=== PATIENT | female | born 1995 | race Caucasian/White ===

== ENCOUNTER 2024-04-04 07:36 | Inpatient (IN) | payer BC ==
[2024-04-04] MEDS ORDERED: ePHEDrine Sulfate 50 MG/10 ML VIAL ONE (08:00)
[2024-04-04] MEDS ORDERED: Bupivacaine 0.25% HCL 30 ML VIAL ONE (08:00)
[2024-04-04 08:14] VITALS: BMI 29.2
[2024-04-04 08:50] LABS: Fetal Membranes Rupture No Membranes Rupture (No Rupture)
[2024-04-04] MEDS ORDERED: Misoprostol 200 MCG TAB PR PRN (09:11)
[2024-04-04] MEDS ORDERED: Tranexamic Acid 1,000 MG/10 ML VIAL IVP PRN (09:11)
[2024-04-04] MEDS ORDERED: HYDROcodone/Acetaminophen 5/325 mg Tablet PO PRN (09:11)
[2024-04-04] MEDS ORDERED: Promethazine HCl 25 MG/ML VIAL IM PRN (09:11)
[2024-04-04] MEDS ORDERED: Ondansetron PF 4 MG/2 ML Vial IVP PRN (09:11)
[2024-04-04] MEDS ORDERED: Diphenoxylate HCl/Atropine Tablet PO PRN (09:11)
[2024-04-04] MEDS ORDERED: hydrALAZINE 20 MG/ML VIAL SLOW IVP PRN ×3 (09:11→23:54)
[2024-04-04] MEDS ORDERED: Lidocaine 1% (PF) 30 ML VIAL SC PRN (09:11)
[2024-04-04] MEDS ORDERED: Methylergonovine 0.2 MG/ML VIAL IM PRN (09:11)
[2024-04-04] MEDS ORDERED: Carboprost 250 MCG/ML AMP IM PRN (09:11)
[2024-04-04] MEDS ORDERED: Oxytocin 30 units/NS 500 ML 500 ML IV SCH (09:15)
[2024-04-04] MEDS: Misoprostol 100 MCG TAB VAG SCH (10:02)
[2024-04-04] MEDS: Penicillin G Potassium 5 MILL.UNITS in Sodium Chloride 0.9% 100 ML IVPB SCH (10:02)
[2024-04-04 10:21] LABS: Hemoglobin 10.2 g/dL (12.0-15.5); Mean Corpuscular HGB CONC 31.9 g/dL (32.0-36.0); Mean Corpuscular Hemoglobin 25.3 pg (27.0-33.0); Mean Corpuscular Volume 79.4 fL (81.6-98.3); Mean Platelet Volume 9.9 fL (7.4-10.4); Platelet Count 290 10x3/uL (150-450); RBC Distribution Width 13.2 % (11.5-14.5); Red Blood Cell (RBC) Count 4.03 10x6/uL (3.90-5.03); White Blood Cell (WBC) Count 8.05 10x3/uL (3.5-10.5)
[2024-04-04 10:55] LABS: HBsAg Index 0.22 S/CO (0-0.99); Hep B Surf Ag - L&D Non-Reactive S/CO (NonReactive); Syphilis Antibody Nonreactive (Nonreactive); Syphilis Antibody Index 0.05 S/CO (<1.00 Non-Reactive)
[2024-04-04] MEDS: Penicillin G 2.5 MILL.units 2.5 MILL.UNITS in Premix 1 BAG IVPB SCH (14:57)
[2024-04-04] MEDS: fentaNYL/Ropivacaine Epidural 100 ML ONE (16:46)
[2024-04-04] MEDS: Lactated Ringer's 1,000 ML IV SCH (17:24)
[2024-04-04] MEDS: Oxytocin 30 units/NS 500 ML 500 ML IV SCH (20:55)
[2024-04-04 21:24] LABS: Analyzer IN Cardio CS NICU; Critical Notified By: clumpkins rt; Critical Notified Whom: Sharon FNP; RapidComm Collect By nur.arp
[2024-04-04 21:27] LABS: Analyzer IN Cardio CS NICU; Critical Notified By: clumpkins rt; Critical Notified Whom: Sharon FNP; RapidComm Collect By nur.arp; pH (Cord, venous) 7.316 (7.250-7.350)
[2024-04-04] MEDS: Ibuprofen 800 MG TAB PO PRN (22:51)
[2024-04-04] MEDS ORDERED: diphenhydrAMINE 25 MG CAP PO PRN (23:54)
[2024-04-04] MEDS ORDERED: Witch Hazel 100 PAD JAR TOP PRN (23:54)
[2024-04-04] MEDS ORDERED: Milk Of Magnesia 30 ML UDCUP PO PRN (23:54)
[2024-04-04] MEDS ORDERED: Bisacodyl 10 MG SUPP PR PRN (23:54)
[2024-04-04] MEDS ORDERED: Boostrix 0.5 ML (Tdap) VIAL (>/=7 yrs of age) IM ONE (23:54)
[2024-04-05] MEDS: Ibuprofen 800 MG TAB PO SCH (08:34)
[2024-04-05] MEDS: Prenatal Vitamin 1 TAB PO SCH (10:00)
[2024-04-05] MEDS: Docusate 100 MG CAP PO SCH (10:00)
[2024-04-05] MEDS: Ferrous Sulfate 325 MG TAB PO SCH (10:04)
[2024-04-05 20:33] VITALS: BP 120/79; TEMP 98.8
== END 2024-04-05 22:00 | disposition home or self-care (01) | DRG 807 ==
LOC: CSHLD/OP 07:36 → CSHLD 09:16 → CSHPP 23:12
PROVIDERS: ADMIT Obstetrics & Gynecology; ATTEND Obstetrics & Gynecology
PROC: 10E0XZZ Delivery of Products of Conception, External Approach (ICD-10-PCS; principal; 2024-04-04)
PROC: 3E0334Z Introduction of Serum, Toxoid and Vaccine into Peripheral Vein, Percutaneous Approach (ICD-10-PCS; 2024-04-05)
DX: O99.824 Streptococcus B carrier state complicating childbirth (principal); Z37.0 Single live birth; Z3A.38 38 weeks gestation of pregnancy
CPT/HCPCS: 36415; 51702; 82805; 84112; 85027; 85461; 86780; 86850; 86870; 86900; 86901; 87340; 88307; 90384; 96372; 99285; J0665; J2540; J2590; J7120